=== PATIENT | female | born 1955 | race Caucasian/White ===

== ENCOUNTER → 2018-06-12 08:35 | Outpatient (REF) | payer BC, SELFPAY ==
[2018-06-12 12:32] LABS: Anion Gap 4.3 mmol/L (3-11); BUN 14 mg/dL (7-18); CO2 31.7 mmol/L (21.0-32.0); CREATININE 0.75 mg/dL (0.55-1.02); Calcium 8.6 mg/dL (8.5-10.1); Chloride 105 mmol/L (98-107); Cholesterol 219 mg/dL (50-200); Glucose 92 mg/dL (70-100); HDL Cholesterol 59 mg/dL (40-60); LDL CHOLESTEROL 140 mg/dL (<100); Potassium 4.1 mmol/L (3.5-5.1); Sodium 141 mmol/L (136-145); TSH 0.53 uIU/mL (0.358-3.74); Triglyceride 138 mg/dL (30-150)
[2018-06-12 13:57] LABS: Hemoglobin A1C 5.8 % (4.5-6.2)
== END ==
LOC: NCHCN 08:35
PROVIDERS: PCP Internal Medicine; Visit Provider Family Medicine
DX: Z00.00 Encounter for general adult medical examination without abnormal findings (principal); R73.9 Hyperglycemia, unspecified
CPT/HCPCS: 80048; 80061; 83721; 83036; 84443

== ENCOUNTER 2018-12-09 08:35 | Outpatient (REF) | payer BC, SELFPAY ==
[2018-12-09 14:10] LABS: ALT 45 U/L (12-78); AST 37 U/L (15-37); Albumin 3.6 g/dL (3.4-5.0); Alkaline Phosphatase 83 U/L (46-116); Anion Gap 6.5 mmol/L (3-11); BUN 12 mg/dL (7-18); Bilirubin, Total 0.4 mg/dL (0.2-1.0); CO2 31.5 mmol/L (21.0-32.0); CREATININE 0.86 mg/dL (0.55-1.02); Calcium 8.4 mg/dL (8.5-10.1); Chloride 99 mmol/L (98-107); Cholesterol 206 mg/dL (50-200); Glucose 108 mg/dL (70-100); HDL Cholesterol 59 mg/dL (40-60); LDL CHOLESTEROL 124 mg/dL (<100); Potassium 4.5 mmol/L (3.5-5.1); Sodium 137 mmol/L (136-145); Triglyceride 89 mg/dL (30-150)
[2018-12-09 14:13] LABS: Hemoglobin A1C 6.2 % (4.5-6.2)
== END 2018-12-09 08:55 ==
LOC: NCHCN 08:35
PROVIDERS: PCP Internal Medicine; Visit Provider Family Medicine
DX: Z00.00 Encounter for general adult medical examination without abnormal findings (principal); R73.9 Hyperglycemia, unspecified; R03.0 Elevated blood-pressure reading, without diagnosis of hypertension; E03.9 Hypothyroidism, unspecified; F32.9 Major depressive disorder, single episode, unspecified
CPT/HCPCS: 80053; 80061; 83721; 83036

== ENCOUNTER 2019-01-29 23:03 | Outpatient (REF) | payer BC, SELFPAY | END 2019-01-29 23:23 | LOC: NCHCN 23:03 | PROVIDERS: PCP Internal Medicine; Visit Provider Internal Medicine | DX: R30.0 Dysuria (principal) | CPT/HCPCS: 87086 ==

== ENCOUNTER 2019-07-22 02:19 | Outpatient (CLI) | payer BC, SELFPAY ==
--- NOTE | 2019-07-22 10:00 | NS.NUTBLAN_ITS ---
DESCRIPTION:? Julienne Vickers presents for nutrition consult for diabetes prevention with A1c down to 6.1? She participated in the PREVENT T2 program and found it helpful and successful with a 30 pound weight loss which she maintained for 1 year.? She wishes to lose 10 more pounds.?? Julienne has rye toast with neuchatel cheese for breakfast with coffee; has a salad with cheese, nuts, craisins, meat and 1 T vinaigrette.? Has protein and vegetables for supper with vegetarian 1-2 times per week and fish at least once a week.? She does not eat after 8.? She occasionally?has ice cream and chips are a downfall. Occasionally has a cookie and justifies it because they are whole grain.? One challenge is the number of conferences and meals out that she has with her .?? She attends [employer] twice a week for flexibility but recognizes she needs to increase cardiovascular. INTERVENTION: Discussed weight loss on caloric requirements and the need to decrease calories just to maintain current weight.? She is aware of this and willing to find a way to cut sweets a bit more. ? Reviewed diabetes food guide per her suggestion with focus on 1/2 plate vegetables at lunch and supper, always mixed protein/fat with carbohydrate, introduced glycemic index concepts and hunger/fullness.. Discussed strategies to decrease caloric intake at conference meals.?? PLAN:? Julienne will consider the many options discussed and implement 1 or 2 in the coming week.? She will increase her physical acitivity to daily including cardiovascular activities.
== END 2019-07-22 02:39 ==
PROVIDERS: PCP Internal Medicine; Visit Provider Dietitian, Registered
DX: R73.03 Prediabetes (principal); Z71.3 Dietary counseling and surveillance
CPT/HCPCS: 97802

== ENCOUNTER 2019-12-18 09:39 | Outpatient (REF) | payer BC, SELFPAY ==
[2019-12-18 12:35] LABS: Calculated LDL 149 mg/dL (<100); Cholesterol 239 mg/dL (<200); HDL Cholesterol 65 mg/dL (40-60); TSH 1.67 uIU/mL (0.36-3.74); Triglyceride 128 mg/dL (<150)
[2019-12-18 13:20] LABS: Hemoglobin A1C 5.9 % (3.8-5.6)
== END 2019-12-18 09:59 ==
LOC: NCHCN 09:39
PROVIDERS: PCP Internal Medicine; Visit Provider Family Medicine
DX: Z00.00 Encounter for general adult medical examination without abnormal findings (principal); R73.03 Prediabetes; E78.5 Hyperlipidemia, unspecified; E66.3 Overweight
CPT/HCPCS: 80061; 83036; 84443

== ENCOUNTER 2020-03-05 01:46 | Outpatient (CLI) | payer BC, SELFPAY ==
--- NOTE | 2020-03-05 | DI.MAMMO_ITS ---
EXAM: MG MAMMO SCREENING CLINICAL HISTORY: SCREENING, Z12.31 TECHNIQUE: Bilateral full field digital CC and MLO mammographic images were obtained with 3D tomosyn thesis and utilizing computer aided detection (CAD). COMPARISON: Available for comparison. FINDINGS: Masses/Architectural Distortion: None seen. Microcalcifications: No suspicious pleomorphic-type are seen. Skin Thickening/Nipple Retraction: None. IMPRESSION: 1. No significant interval change with no specific features of malignancy noted. 2. Unless there is more urgent need, screening mammography is recommended, as per [employer] guidelines. BI-RADS Category 1 - Negative Breast Density - Category B - Scattered areas of fibroglandular density A negative radiographic report should not delay biopsy if a dominant or clinically suspicious mass is present. Up to ten percent of cancers are not identified on mammography. A negative report may reinforce clinical impression. Adenosis and dense breasts may obscure an underlying neoplasm. False positive reports average 6 to 10%. Patient will receive a letter notifying them of these results.
== END 2020-03-05 02:06 ==
PROVIDERS: PCP Internal Medicine; Visit Provider Family Medicine
DX: Z12.31 Encounter for screening mammogram for malignant neoplasm of breast (principal)
CPT/HCPCS: 77063; 77067

== ENCOUNTER 2021-04-05 02:05 | Outpatient (CLI) | payer MEDICARE, OTHER, SELFPAY ==
--- NOTE | 2021-04-05 06:30 | DI.US_ITS ---
Exam(s) US PELVIS TRANSVAGINAL EXAM: US PELVIS TRANSVAGINAL CLINICAL HISTORY: evaluate ovaries and endometrial stripe,PELVIC PRESSURE,RELAXATION,N81.4, TECHNIQUE: Ultrasound performed using standard protocol. COMPARISON: No exams were available for comparison FINDINGS: Pelvic ultrasound was performed transabdominally and transvaginally. Uterus measures 6.9 x 2.5 x 3.9 cm. Endometrial stripe appears homogeneous and is about 1 millimeter in thickness. No focal myometrial abnormality seen. No free fluid in the cul-de-sac. Limited scanning of the kidneys is unremarkable. Right ovary contains a 46 x 44 x 38 millimeter in diameter septated cystic mass which is avascular. Inferior/posterior portions of the cystic mass are not ideally visualized. Pelvic MR suggested for c orrelation to exclude solid components of this mass. Left ovary measures 23 x 13 x 13 millimeters. No left ovarian mass seen. IMPRESSION: Right ovarian cystic mass, suboptimally visualized but apparently and avascular septated cyst. MR co rrelation recommended to exclude solid components of this lesion. DATA REPOSITORY:
== END 2021-04-05 02:25 ==
PROVIDERS: PCP Family Medicine; Visit Provider Obstetrics & Gynecology
DX: N83.201 Unspecified ovarian cyst, right side (principal); N81.4 Uterovaginal prolapse, unspecified
CPT/HCPCS: 76830; 76856

== ENCOUNTER → 2021-04-11 13:08 | Outpatient (BNVA) | payer MEDICARE, OTHER, SELFPAY | PROVIDERS: PCP Family Medicine; Referring Provider Obstetrics & Gynecology; Visit Provider Nurse Practitioner Gerontology | DX: N39.3 Stress incontinence (female) (male) (principal) | CPT/HCPCS: 99204 ==

== ENCOUNTER 2021-04-25 02:17 | Outpatient (CLI) | payer MEDICARE, OTHER, SELFPAY ==
[2021-04-25 14:06] LABS: CREATININE 0.7 mg/dL (0.55-1.02)
[2021-04-25] MEDS: Normal Saline Flush 10 ML SYR IVP (14:18)
[2021-04-25] MEDS: Gadoterate meglumine 20 ML VIAL 17 ML IVP (14:19)
--- NOTE | 2021-04-25 14:45 | DI.MRI_ITS ---
Exam(s) MR PELVIS WO/W EXAM: MR PELVIS WO/W CLINICAL HISTORY: pelvic mass,RT OVARIAN MASS,N83.8 COMPARISON: US US PELVIS TRANSVAGINAL from 04/05/2021 FINDINGS: Multisequence MRI scan of the pelvis was performed with both pre and post IV contrast sequences. IV contrast = 17 mL Dotarem FINDINGS: UTERUS/ADNEXA: Main findings in the right adnexa where there is a well-defined cystic mass measuring 5 cm AP by 4.5 cm wide by 6.7 cm craniocaudal. This right ovarian mass exhibits uniformly cystic internal signal wit h the exception of a few very thin septae and no evidence of internal enhancement nor significant mur al nodules. No surrounding free fluid. Opposite-left adnexa appears unremarkable. Uterus size is age-appropriate. No significant uterine fibroids evident. There is no fluid in the end ometrial canal. URINARY BLADDER: Small cystocele. Otherwise unremarkable. OTHER: There are sigmoid diverticuli, without evidence of acute diverticulitis. No intrapelvic nor inguinal adenopathy. OSSEOUS: No significant osseous lesions in the field of view of this study. Sacroiliac joints unremar kable. No evidence of avascular necrosis in the visualized hips. IMPRESSION: Almost purely cystic 5 x 4.5 x 6.7 cm mass in the right adnexa the exception of 2 very thin internal septae. No mural nodules nor abnormal internal enhancement evident. No surrounding fluid nor obvious intrapelvic adenopathy. Although this has somewhat benign-appearing characteristics given this findin g in this age group recommend close follow-up including repeat imaging after appropriate clinical int erval. No significant findings in the opposite-left adnexa. No significant uterine fibroids. Sigmoid diverticulosis. No obvious acute diverticulitis. DATA REPOSITORY:
== END 2021-04-25 02:37 ==
PROVIDERS: PCP Family Medicine; Visit Provider Obstetrics & Gynecology
DX: N83.8 Other noninflammatory disorders of ovary, fallopian tube and broad ligament (principal); K57.30 Diverticulosis of large intestine without perforation or abscess without bleeding
CPT/HCPCS: 72197; 82565

== ENCOUNTER 2021-05-04 08:13 | Outpatient (CLI) | payer MEDICARE, OTHER, SELFPAY ==
[2021-05-04 17:34] LABS: CEA <2.0 ng/mL (See Note)
[2021-05-05 10:33] LABS: CA 125 7 U/mL (<30)
[2021-05-06 10:10] LABS: CA 19-9 9 U/mL (<35)
== END 2021-05-04 08:14 | disposition home or self-care (01) ==
LOC: LBO 08:14
PROVIDERS: PCP Family Medicine; Visit Provider Obstetrics & Gynecology
DX: N83.8 Other noninflammatory disorders of ovary, fallopian tube and broad ligament (principal); R19.09 Other intra-abdominal and pelvic swelling, mass and lump
CPT/HCPCS: 36415; 86304; 82378; 86301

== ENCOUNTER 2021-06-06 02:11 | Outpatient (CLI) | payer MEDICARE, OTHER, SELFPAY ==
[2021-06-06 11:01] LABS: Source Nasal/Nares
[2021-06-06 13:57] LABS: COVID-19 PCR Negative (Negative)
== END 2021-06-06 02:12 | disposition home or self-care (01) ==
LOC: LBO 02:12
PROVIDERS: PCP Family Medicine; Visit Provider Obstetrics & Gynecology
DX: Z20.822 Contact with and (suspected) exposure to COVID-19 (principal); Z01.818 Encounter for other preprocedural examination
CPT/HCPCS: 36415; 86850; 86900; 86901; 87635; 85025

== ENCOUNTER 2021-06-06 03:05 | Outpatient (CLI) | payer MEDICARE, OTHER, SELFPAY ==
[2021-06-06 08:58] LABS: Abs Immature Grans 0.01 10^3/uL (0.0-0.06); Absolute Basophil Count 0.04 10^3/uL (0.0-0.2); Absolute Eosinophil Count 0.36 10^3/uL (0.0-0.7); Absolute Lymphocyte Count 1.19 10^3/uL (1.2-3.4); Absolute Monocyte Count 0.32 10^3/uL (0.1-0.8); Basophils % 0.9; Eosinophils % 8.1; HGB 14.1 g/dL (11.2-15.7); Immature Grans % 0.2; Lymphocytes % 26.9; MCH 29.5 pg (27.0-33.0); MCV 92.1 fL (80-95); MPV 9.7 fL (8.0-11.0); Monocytes % 7.2; Neutrophils % 56.7; Nucleated RBC 0 %; Platelet Count 231 10^3/uL (130-400); RBC 4.78 10^6/uL (3.93-5.22); RDW-SD 41.1 fL; WBC 4.42 10^3/uL (4.4-10.8)
== END 2021-06-06 03:06 | disposition home or self-care (01) ==
LOC: LBO 03:05
PROVIDERS: PCP Family Medicine; Visit Provider Obstetrics & Gynecology
DX: R10.2 Pelvic and perineal pain (principal); N83.8 Other noninflammatory disorders of ovary, fallopian tube and broad ligament; N81.4 Uterovaginal prolapse, unspecified; Z01.818 Encounter for other preprocedural examination; Z01.812 Encounter for preprocedural laboratory examination
CPT/HCPCS: 36415; 86850; 86900; 86901; 85025

== ENCOUNTER 2021-06-08 07:51 | Inpatient (IN) | payer MEDICARE, OTHER, SELFPAY ==
[2021-06-08] VITALS (12 sets, daily range): BP systolic 105–141; BP diastolic 46–83; PULSE 50–65; RESP 12–18; TEMP 36–36.6; O2SAT 94–98; BMI 30.1
[2021-06-08] MEDS: Lactated Ringers 1,000 ML 125 ML IV ×2 (08:25→14:49)
--- NOTE | 2021-06-08 08:25 | ANES.PREOP_ITS ---
General Info Date of Service Date Performed: 06/08/21 Height: 5 ft 6 in Weight: 84.6 kg Body Mass Index (BMI): 30.1 Surgical Procedure: Operation Date: 06/08/21 09:10 Proposed Procedures Side Surgeon p Hysterectomy Vaginal Laparoscopic Assist Tanika Henriquez DO Meds Allergies and Home Medications Allergies Allergy/AdvReac Type Severity Reaction Status Date / Time omeprazole AdvReac Intermediate nausea, Unverified 06/08/21 08:04 bloating, headaches Home Medication Medication Instructions Recorded levothyroxine 75 mcg PO HS 10/07/15 pravastatin 20 mg PO HS 10/07/15 albuterol sulfate 90 mcg/actuation 2 puff INHALATION Q6H PRN 03/09/21 aerosol inhaler Current Visit Medications: Current Medications Generic Name Dose Route Start Last Admin Trade Name Freq PRN Reason Stop Dose Admin Ringer's Solution 1,000 mls @ 125 mls/hr 06/08/21 06:00 IV 07/07/21 23:59 INFUSION INGA Cefazolin Sodium 2,000 mg/ 100 mls @ 200 mls/hr 06/08/21 06:00 Sodium Chloride IVPB 06/08/21 23:59 PREOP INGA IV Miscellaneous Supplies 1 each 06/08/21 06:00 Iv Access IV 07/07/21 23:59 DIRECTED INGA Sodium Chloride 0 ml 06/08/21 06:00 Normal Saline Flush 10 Ml Syr IV 07/07/21 23:59 PRN PRN Sodium Chloride 0 ml 06/08/21 06:00 Normal Saline 10 Ml Vial IJ 07/07/21 23:59 DIRECTED PRN Sterile Water 0 ml 06/08/21 06:00 Water,Injection,Sterile 10 Ml Vial IJ 07/07/21 23:59 DIRECTED PRN PFSH Active Problems Active Problems: Problem Status Onset Code Pelvic mass in female R19.00 Mass of right ovary N83.8 Cystocele with prolapse N81.4 Pelvic pressure in female R10.2 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 N81.4 Medical History Medical History Asthma Cystocele with prolapse Hypercholesteremia Hypothyroid Mass of right ovary Pelvic mass in female Pelvic pressure in female 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 Pre-diabetes Surgical History Surgical History Hx laparoscopic cholecystectomy Hx of section Tobacco Smoking/Tobacco Use Status: Never Alcohol Alcohol Intake: current Alcohol intake frequency: a few times a week Substance Use Substance use: Never Prental History History 2 Para Hx # Term Pregnancies 2 Multiple births Hx # Pregnancies Ectopic pregnancies AB induced Hx Number of Living Children 2 AB spontaneous Vital Signs and Lab Results Vital Signs Most Recent Vital Signs in EMR: Most Recent Vital Signs Temp Pulse Resp BP Pulse Ox 36.5 C 65 18 141/83 H 95 06/08/21 08:00 06/08/21 08:00 06/08/21 08:00 06/08/21 08:00 06/08/21 08:00 Lab Results Blood Type / Crossmatch: Patient ABO/Rh A Positive 06/06/21 08:52 06/06/21 Antibody Screen NEGATIVE 06/06/21 08:52 06/06/21 Complete Blood Count: White Blood Count 4.42 10^3/uL (4.4-10.8) 06/06/21 08:52 06/06/21 Red Blood Count 4.78 10^6/uL (3.93-5.22) 06/06/21 08:52 06/06/21 Hemoglobin 14.1 g/dL (11.2-15.7) 06/06/21 08:52 06/06/21 Hematocrit 44.0 % (36.0-46.0) 06/06/21 08:52 06/06/21 Platelet Count 231 10^3/uL (130-400) 06/06/21 08:52 06/06/21 Complete Metabolic Panel: No Data to Display Liver Function Panel: No Data to Display Coagulation Panel: No Data to Display Cardiac Panel: No Data to Display Arterial Blood Gas: No Data to Display Venous Blood Gas: No Data to Display Pancreas Panel: No Data to Display Thyroid Panel: No Data to Display Infectious Disease: Coronavirus (COVID-19)(PCR) Negative (Negative) 06/06/21 09:15 06/06/21 Coronavirus 2019 Source Nasal/Nares 06/06/21 09:15 06/06/21 Blood Cultures: No Data to Display Toxicology Panel: 2 No Data to Display Imaging and Studies Imaging and Studies Stress Test Summary: 1. Myocardial perfusion imaging: No myocardial perfusion defects noted. 2. The calculated left ventricular ejection fraction after stress: 66%. No left ventricular regional motion abnormality. History: REASON FOR VISIT: PT REPORTS EPISODE OF CHEST PAIN JUST BEFORE JOSLYN. HER DOCTOR QUESTIONS IF THIS IS RELATED TO HER ESOPHAGEAL SPASMS OR CARDIAC RELATED. PT HAS A POSITIVE FAMILY HISTORY FOR CARDIAC DISEASE. PT REPORTS THIS EPISODE OF SUBSTERNAL CHEST PAIN WOKE HER UP FROM SLEEP, AND LASTED ABOUT 10 MINUTES. SHE DESCRIBES THE CHEST PAIN A TIGHTNESS OR HEAVINESS LIKE A BAND TIGHTENING AROUND MY CHEST ASSOCIATED WITH SHARP CHEST PAINS AND NAUSEA. SHE STATES THE CHEST HEAVINESS LASTED LONGER THAN THE SHARP CHEST PAINS. Risk factors: MOTHER AT AGE 63 OF HEART DISEASE. BROTHER AT AGE 32 OF HEART DISEASE. Family history of coronary artery disease. Obesity. Dyslipidemia. Cholesterol: 216mg/dl. HDL: 57mg/dl. LDL: 149mg/dl. Triglycerides: 128mg/dl. ALLERGIES: NO KNOWN DRUG ALLERGIES. MEDICATIONS: CITALOPRAM 20 MG DAILY. LEVOTHYROXINE SODIUM 75 MCG DAILY. OMEPRAZOLE 20 MG DAILY. PRAVASTATIN SODIUM 20 MG DAILY. ALBUTEROL MDI, NEEDED. Anesthesia Assessment and Plan Anesthesia History Personal History: No History of Anesthesia Complications Family History: No Family History of Anesthesia Complications Exercise Tolerance Exercise Tolerance: Metabolic Equivalents>4 Pertinent Negatives Pertinent Negatives: No Symptoms of GERD, No Major Cardiovascular Symptoms or Complaints, No Major Pulmonary Symptoms or Complaints and No History of CVA/TIA Cardiac & Pulmonary Exam Cardiac Exam: Normal S1/S2 Heart Sounds Pulmonary Exam: Clear Bilateral Breath Sounds Airway Exam Known Difficult Airway: No Mallampati Class: 2 Mouth Opening: Normal (> 3cm) Thyromental Distance: Greater than 3 cm Neck Range of Motion: Full ROM Neck Circumference: Normal Teeth Condition: Normal Dentition ASA Classification ASA Score: ASA 2 Emergency Case?: No NPO Status NPO Status: NPO Clears >2 hours, Solids >8 hours Anesthesia Plan Resuscitation Status: Full Code Anesthesia Technique: General Anesthesia Airway Planned: Endotracheal Tube Monitors Used: Standard Monitors
[2021-06-08] MEDS: ceFAZolin 2,000 MG in Normal Saline 100 ML 200 MG IVPB (10:32)
--- NOTE | 2021-06-08 11:24 | UTER_PTH ---
PATIENT: Donna Abbasi LOC: OBS U#:[id number] AGE/SX: 66/F ROOM: OBS.305 RE06/08/[address]: Tanika Henriquez DO : 1955 BED: A DIS: 06/09/2021 SPEC #: [id number] RECD: 06/08/21 16:05 STATUS: NANCY REQ #: [id number] JONATHAN: 06/08/21 11:[address]: Tanika Henriquez DEPT: Surgical Specimen RECD BY: Kari Galindo ENTERED: 06/08/21 16:14 SP TYPE: UTER OTHR DR: Albina Uribe Tissues: 1 - OVARY NOT TUMOR W OR W/O TUBES 2 - OVARY NOT TUMOR W OR W/O TUBES 3 - UTERUS W OR W/O OVARIES(NOT TUMOR/PROLAPSE) Procedures: GROSS AND MICRO LEVEL 4 Comments: [id number]
[2021-06-08] MEDS: Bupivacaine 0.5% Pres-Free 30 ML VIAL (12:33)
--- NOTE | 2021-06-08 13:30 | ROE_ITS ---
Date of service: 06/08/21 Time of Service: 13:30 Operative Note Operative Note DATE OF PROCEDURE: 06/08/21 PRE-OP DIAGNOSIS: Pelvic organ prolapse, right ovarian cyst POST-OP DIAGNOSIS: same PROCEDURE: Laparoscopically assisted vaginal hysterectomy with bilateral salpingo-oophorectomy, Stewart's culdoplasty, uterosacral plication , anterior colporrhaphy, cystoscopy SURGEON: Tanika Henriquez ASSISTING SURGEON: Toma Cortes ANESTHESIA TYPE: General LMA/ETT and Spinal Refer to Anesthesia Record ESTIMATED BLOOD LOSS: 50 PATHOLOGY: other (1. Right adnexa 2. Left adnexa 3. Uterus and cervix) COMPLICATIONS: None Patient was transported to: PACU Patient's condition: stable Indications: Symptomatic pelvic organ prolapse and right ovarian cyst Findings: 5 cm simple appearing right ovarian cyst, normal-appearing left ovary with adhesions to the left pelvic sidewall, normal-appearing uterus, grade 3 cystocele, grade 2 uterine prolapse Procedure Description: Patient is taken the operating suite with an IV running. She was placed in seated position for administration of spinal for postoperative pain control. She is then placed in dorsal supine position and endotracheal intubation performed for the administration of general anesthesia with ease. At this point she was placed in the modified dorsolithotomy position in [facility] stirrups and prepped and draped in the usual sterile fashion. Veloz catheter was inserted for continuous bladder drainage. Exam under anesthesia revealed a uterus that was small, midline, mobile and right adnexal fullness. She has significant cystocele, grade 3 and grade 2 uterine prolapse. At this point speculum was placed in the posterior vaginal vault and a Hulka uterine manipulator placed through the cervix for uterine manipulation. Speculum was removed and attention was returned to the abdomen. At this point after infiltrating of half percent Marcaine at the umbilicus a 1 cm incision was made at the umbilicus. The anterior abdominal wall was elevated and varies needle inserted. CO2 gas used to create a pneumoperitoneum with a maximum pressure of 15 mmHg. At this point a bladeless 1012 Optiview was placed under direct visualization into the abdomen. The abdomen was then visualized completely. There is no evidence of trauma. Right and left lower quadrant trocar sites were placed with a 5 mm Optiview under direct visualization after infiltration of half percent Marcaine. At this point patient was placed in Trendelenburg and uterus tubes and ovaries inspected. There was noted to be simple appearing right ovarian cyst which measured approximately 5 cm. Left ovary was small and left fallopian tube with fimbriated end somewhat adherent to the left pelvic sidewall. Uterus was mobile and small. At this point attention was turned to the right adnexa which was elevated and right infundibulopelvic ligament was cautery transected. Right utero-ovarian ligament was also cautery transected and ligated and Endopouch placed into the abdomen. The ovary and cyst were elevated to the anterior abdominal wall and Endopouch was produced through the anterior normal wall. The cyst was then opened extracorporeally and cyst fluid was removed. This allowed delivery of the right adnexa through the anterior abdominal wall without spillage of fluid into the abdomen. At this point attention was turned to the left adnexa which was elevated and meticulously sharply dissected away from the left pelvic sidewall. Left infundibulopelvic ligament was cautery transected and ligated as was the left round ligament. The left utero-ovarian ligament was cautery transected and the left adnexa removed from the abdomen through trocar site. At this point attention again was turned to the remainder of the left round ligament which was cautery transected allowing access to the left broad ligament. Left broad ligament was opened and the vesicouterine peritoneum identified and bladder flap created. The left uterine artery and vein were cauterized. A similar procedure was carried out on the right round ligament allowing access to the right broad ligament and the remainder of the bladder flap was created anteriorly. At this point all pedicles were inspected and at tention was turned to the vaginal vault. With attention at the vaginal vault a speculum was placed and Hulka had been removed. Homer clamps were used to grasp the anterior and posterior lips of the cervix and in a circumferential fashion with the Bovie cautery the cervical vaginal incision was made. The posterior cul-de-sac was entered sharply. The right and left uterosacral cardinal complexes were clamped transected and ligated. And with meticulous sharp dissection the anterior cul-de-sac was entered. The right and left uterosacral cardinal complex and uterine pedicles were clamped transected and ligated allowing delivery of the cervix and uterus through the vaginal vault. At this point there was noted to be a small enterocele which was reduced and a Stewart's culdoplasty stitch placed. Uterosacral cardinal complex which had been previously tagged were reapproximated in the midline for uterosacral plication. At this point the vaginal cuff was closed using 0 Vicryl suture in a running locked fashion in a vertical fashion. At this point anterior colporrhaphy was performed with infiltration of 1% lidocaine with epinephrine into the anterior vaginal wall for both hemostasis a nd [place] dissection. A vertical incision was carried out from the vaginal cuff to just below the urethrovesical angle. Vaginal mucosa was sharply dissected and meticulously removed from the underlying structure. Endopelvic fascia identified. A Mara plication stitch was performed at the urethrovesical angle. The remainder of the anterior crura feel was completed with a suture of 2-0 Vicryl suture to reapproximate the endopelvic fascia anteriorly. The vaginal mucosa was then trimmed and the vaginal mucosa was reapproximated with 3-0 Vicryl suture in a running locked fashion. This completed the anterior colporrhaphy. Attention was then returned to the abdomen and abdomen was reinsufflated with CO2 gas. Both the vaginal cuff and all pedicles were inspected and found to be hemostatic. Patient did receive indigo carmine intravascularly. The fascial incision at the umbilicus was then closed using 0 Vicryl suture and skin edges were reapproximated. Sterile dressing was placed. At this point bladder cystoscopy performed. Bladder was instilled with normal saline the entire bladder dome and trigone were inspected and found to be without trauma or suture present. Both ureteric orifice ease were identified and jets of blue urine were identified. This completed the procedure and cystoscope was removed. Veloz catheter was reinserted and the patient was returned to the dorsal supine position. She woke from anesthesia with ease. Taken recovery room in stable condition. Findings: 5 cm right ovarian cyst. Left small ovary with adhesions of to the left pelvic sidewall. Normal-appearing fallopian tubes. Small uterus. Grade 3 cystocele. Grade 2 uterine prolapse. EBL: 50 mL Complications: None apparent Pathology: Right adnexa, left adnexa, uterus and cervix for examination.
--- NOTE | 2021-06-08 15:51 | W.ANESPOSTOP ---
Postoperative Evaluation Date, Time and Location Date Performed: 06/08/21 Time Performed: 15:51 Patient Location: PACU Vital Signs Most Recent Imported Vital Signs: Most Recent Vital Signs Temp Pulse Resp BP Pulse Ox 36.2 C L 55 L 14 117/76 97 06/08/21 14:39 06/08/21 14:39 06/08/21 14:39 06/08/21 14:39 06/08/21 14:39 Pain Score Most Recent Pain Score: Most Recent Pain Score Pain Level [Abdomen] 4 06/08/21 14:40 Pain Level 4 06/08/21 14:39 Assessment Mental Status: Awake (Alert & Oriented to Patient Baseline) Airway and Respiratory Function: Patent airway with normal (patient baseline) respiratory exam Cardiovascular Function: Hemodynamically Stable Hydration Status: Adequately Hydrated Nausea & Vomiting: No Nausea or Vomiting Pain: Pt. Denies Any Pain Peripheral Nerve Block: Patient did not receive a nerve block
[2021-06-08] MEDS: Ketorolac 15 MG/ML VIAL IVP (20:27)
[2021-06-08] MEDS: Docusate Sodium 100 MG CAP PO (20:27)
[2021-06-09 00:28] VITALS: BP 113/57; PULSE 55; RESP 18; TEMP 36.4; O2SAT 98
[2021-06-09] MEDS: Ketorolac 15 MG/ML VIAL IVP ×2 (01:58→07:17)
[2021-06-09 07:08] LABS: Abs Immature Grans 0.02 10^3/uL (0.0-0.06); Absolute Basophil Count 0.02 10^3/uL (0.0-0.2); Absolute Eosinophil Count 0.05 10^3/uL (0.0-0.7); Absolute Lymphocyte Count 1.11 10^3/uL (1.2-3.4); Absolute Monocyte Count 0.56 10^3/uL (0.1-0.8); Absolute Neutrophil Count 6.45 10^3/uL (1.2-6.7); Basophils % 0.2; Eosinophils % 0.6; HCT 39.6 % (36.0-46.0); HGB 12.8 g/dL (11.2-15.7); Immature Grans % 0.2; Lymphocytes % 13.5; MCH 29.8 pg (27.0-33.0); MCHC 32.3 % (32.0-36.0); MCV 92.1 fL (80-95); MPV 9.9 fL (8.0-11.0); Monocytes % 6.8; Neutrophils % 78.7; Nucleated RBC 0 %; Platelet Count 202 10^3/uL (130-400); RDW 12.3 % (11.7-14.6); RDW-SD 41.1 fL; WBC 8.21 10^3/uL (4.4-10.8)
[2021-06-09] MEDS: Docusate Sodium 100 MG CAP PO (07:16)
[2021-06-09 07:32] VITALS: BP 116/62; PULSE 47; RESP 14; TEMP 36.4; O2SAT 95
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
--- NOTE | 2021-06-09 09:23 | W.PM.DS.N ---
DS: Diagnosis Discharge Diagnosis (1) Status post laparoscopic assisted vaginal hysterectomy (LAVH): Status: Acute Discharge Plan Disposition Patient Disposition: HOME Condition: Good Discharge Details Reason For Visit: LAVH, BSO, pelvic reconstruction Admit Date/Time: 06/08/21 07:51 Admit Provider: Tanika Henriquez Attending Provider: Tanika Henriquez Primary Care Provider: Albina Uribe Hospital Course Hospital Course: Patient underwent a laparoscopically assisted vaginal hysterectomy with bilateral salpingo-oophorectomy anterior colporrhaphy, Stewart's culdoplasty, uterosacral ligament plication, cystoscopy for pelvic organ prolapse and right ovarian cyst. She had an uncomplicated surgical procedure with an uncomplicated postoperative course. She was discharged home, postoperative day #1 ambulating, tolerating a regular diet, with oral pain medication. Her follow-up will be in the office in 2 weeks and 6 weeks. She had instructions given which include pelvic rest and no heavy lifting for the next 6 weeks Home Meds and New Rx's Prescriptions: New ibuprofen 800 mg tablet 800 mg PO Q8H Qty: 30 RF: 0 oxycodone-acetaminophen [Percocet] 5-325 mg tablet 1 tab PO Q8H PRNQty: 10 RF: 0 docusate sodium [Colace] 100 mg capsule 100 mg PO BID Qty: 30 RF: 0 Continued albuterol sulfate 90 mcg/actuation HFA aerosol inhaler 2 puff inhalation Q6H PRNRF: 0 levothyroxine 75 MCG tablet 75 mcg PO HS RF: 0 pravastatin 20 MG tablet 20 mg PO HS RF: 0 Discharge Instructions Stand Alone Forms: DSU Post Gynecology Surgery Activity:: Pelvic rest and no heavy Equipment/Supplies:: No Equipment Needed Diet:: As Tolerated Discharge Orders Discharge Orders: Discharge Order (Routine); Ordered 06/09/21 Ordered By: Tanika Henriquez DS: Summary Time Spent with Patient providing and/or coordinating discharge services: Less than 30 minutes Status at Discharge Functional status at discharge: independent ambulation Overall status at discharge: patient is back to baseline Mental Status: mental status grossly normal Speech and Movement: speech and movement normal Mood: congruent mood Affect: normal affect Exam Narrative Exam Narrative: Please see physical exam from progress note dated 06/09/2021 Psych Mental Status: mental status grossly normal Speech and Movement: speech and movement normal Mood: congruent mood Affect: normal affect DS: Data Vitals/I&O Vitals and I&O: Vital Signs Temperature 97.5 F L 06/09/21 07:32 Temperature Source Oral 06/09/21 07:32 Pulse 47 L 06/09/21 07:32 Pulse Rhythm Regular 06/09/21 07:32 Respiratory Rate 14 06/09/21 07:32 Respiratory Effort 06/09/21 07:32 Respiratory Depth Normal 06/09/21 07:32 Respiratory Pattern Normal 06/09/21 07:32 Blood Pressure 116/62 06/09/21 07:32 Pulse Oximetry 95 06/09/21 07:32 Respiratory End-tidal CO2 39 06/08/21 14:39 Oxygen Delivery Method Room Air 06/09/21 07:32 Oxygen Flow Rate 0 06/09/21 07:32 Pain Level 1 06/09/21 00:28 Intake & Output 06/08/21 06/08/21 06/09/21 11:59 23:59 11:59 Intake Total 100 / 2452 2352 / 2452 1490 / 1490 Output Total 150 / 900 750 / 900 450 / 450 Balance -50 / 1552 1602 / 1552 1040 / 1040 Weight 186 lb 8.177 oz Intake: IV 100 / 1702 1602 / 1702 1240 / 1240 Oral 750 / 750 250 / 250 Output: Urine 150 / 850 700 / 850 450 / 450 Estimated Blood Loss 50 / 50 Other: Urine Color Yellow Yellow Dark Judi Urine Appearance Clear Clear Clear Urine Odor None None Comment Catheter removed per standing orders. Emesis Description None Voiding Methods Toilet Data Completed and Pending Labs on day of discharge: Labs from last 24 hours 06/09/21 06:50 WBC 8.21 RBC 4.30 Hgb 12.8 Hct 39.6 MCV 92.1 MCH 29.8 MCHC 32.3 RDW 12.3 Plt Count 202 MPV 9.9 Immature Gran % 0.2 Neutrophils % 78.7 Lymphocytes % 13.5 Monocytes % 6.8 Eosinophils % 0.6 Basophils % 0.2 Nucleated RBC % 0 Absolute Neutrophils 6.45 Absolute Lymphocytes 1.11 L Absolute Monocytes 0.56 Absolute Eosinophils 0.05 Absolute Basophils 0.02 PFSH Medical History Asthma Cystocele with prolapse Hypercholesteremia Hypothyroid Mass of right ovary Pelvic mass in female Pelvic pressure in female 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 Pre-diabetes Surgical History Hx laparoscopic cholecystectomy Hx of section Status post laparoscopic assisted vaginal hysterectomy (LAVH) Patient is status post laparoscopically assisted vaginal hysterectomy with bilateral salpingo-oophorectomy Stewart's culdoplasty, anterior colporrhaphy, uterosacral ligament plication and cystoscopy Family History Other Personal history of malignant neoplasm Social History Smoking/Tobacco Use Status: Never Smoking risk assessment performed?: Yes Alcohol Intake: current Alcohol Intake frequency: a few times a week Drug use: Never Do you feel safe at home: Yes History History 2 Para Hx # Term Pregnancies 2 Multiple births Hx # Pregnancies Ectopic pregnancies AB induced Hx Number of Living Children 2 AB spontaneous
== END 2021-06-09 10:00 | disposition home or self-care (01) | DRG 743 ==
LOC: PDS 15:29 → OBS 15:31
PROVIDERS: Admitting Provider Obstetrics & Gynecology; PCP Family Medicine; Visit Provider Obstetrics & Gynecology
PROC: 0UT9FZZ Resection of Uterus, Via Natural or Artificial Opening With Percutaneous Endoscopic Assistance (ICD-10-PCS; CPT 58552; principal; 2021-06-08 09:00)
DX: N81.4 Uterovaginal prolapse, unspecified (principal); D27.0 Benign neoplasm of right ovary; N83.292 Other ovarian cyst, left side; N83.8 Other noninflammatory disorders of ovary, fallopian tube and broad ligament; J45.909 Unspecified asthma, uncomplicated; E03.9 Hypothyroidism, unspecified; R73.03 Prediabetes
CPT/HCPCS: 58552; 57268; 57240; 36415; 88305; 85025; 88307; J0690; J1100; J1885; J2001; J2250; J2405

== ENCOUNTER 2021-09-01 09:42 | Outpatient (REF) | payer MEDICARE, OTHER, SELFPAY ==
[2021-09-01 17:06] LABS: Hemoglobin A1C 6.1 % (<5.7)
[2021-09-01 17:26] LABS: ALT 37 U/L (14-59); AST 20 U/L (15-37); Albumin 3.9 g/dL (3.4-5.0); Alkaline Phosphatase 66 U/L (46-116); Anion Gap 7.9 mmol/L (3-11); BUN 18 mg/dL (7-18); Bilirubin, Total 0.4 mg/dL (0.2-1.0); CO2 30.1 mmol/L (21.0-32.0); CREATININE 0.7 mg/dL (0.55-1.02); Calcium 8.8 mg/dL (8.5-10.1); Calculated LDL 167 mg/dL (<100); Chloride 107 mmol/L (98-107); Cholesterol 258 mg/dL (<200); Glucose 105 mg/dL (74-106); HDL Cholesterol 63 mg/dL (40-60); Potassium 4.5 mmol/L (3.5-5.1); Sodium 145 mmol/L (136-145); Total Protein 6.9 g/dL (6.4-8.2); Triglyceride 140 mg/dL (<150)
== END 2021-09-01 09:43 | disposition home or self-care (01) ==
LOC: NCHCN 09:42
PROVIDERS: PCP Family Medicine; Visit Provider Family Medicine
DX: E11.9 Type 2 diabetes mellitus without complications (principal); E78.5 Hyperlipidemia, unspecified; E66.3 Overweight
CPT/HCPCS: 80053; 80061; 83036

== ENCOUNTER 2022-03-01 08:12 | Outpatient (REF) | payer MEDICARE, OTHER, SELFPAY ==
[2022-03-01 15:38] LABS: ALT 31 U/L (14-59); AST 19 U/L (15-37); Alkaline Phosphatase 68 U/L (46-116); Anion Gap 7.3 mmol/L (3-11); BUN 21 mg/dL (7-18); Bilirubin, Total 0.4 mg/dL (0.2-1.0); CO2 31.7 mmol/L (21.0-32.0); CREATININE 0.8 mg/dL (0.55-1.02); Calcium 8.8 mg/dL (8.5-10.1); Calculated LDL 169 mg/dL (<100); Chloride 104 mmol/L (98-107); Cholesterol 263 mg/dL (<200); Glucose 115 mg/dL (74-106); HDL Cholesterol 66 mg/dL (40-60); Potassium 4.8 mmol/L (3.5-5.1); Sodium 143 mmol/L (136-145); Total Protein 7.1 g/dL (6.4-8.2); Triglyceride 141 mg/dL (<150)
== END 2022-03-01 08:13 | disposition home or self-care (01) ==
LOC: NCHCN 08:12
PROVIDERS: PCP Family Medicine; Visit Provider Family Medicine
DX: E11.9 Type 2 diabetes mellitus without complications (principal); E78.5 Hyperlipidemia, unspecified; E03.9 Hypothyroidism, unspecified; E66.3 Overweight
CPT/HCPCS: 80053; 80061; 84443

== ENCOUNTER → 2022-07-12 02:21 | Outpatient (CLI) | payer MEDICARE, OTHER, SELFPAY ==
--- NOTE | 2022-07-12 08:30 | DI.MAMMO_ITS ---
Exam(s) MAMMO SCREENING EXAM: MAMMO SCREENING CLINICAL HISTORY: screening,z12.39 TECHNIQUE: Mammograms were interpreted according to the usual protocol including computer analysis w [employer] CAD system, tomosynthesis and C-view imaging. COMPARISON: FINDINGS: The breasts are of moderate density with fairly symmetrical distribution of fibroglandular tissue. No dominant mass or clumped microcalcification is identified in either breast. The current examination is compared with previous examinations including February 2020 and there is question of increased prominen ce of an area of nodularity projected laterally in the right breast on CC view only. Additional mammo graphic views of this area are requested to include CC spot compression view of the right breast. No other significant change seen in comparison with prior examinations. IMPRESSION: Additional mammographic views of the right breast are requested as described above. Breast ultrasound may be indicated as well depending on the results of the additional mammographic views. BI-RADS Category 0 - Assessment Incomplete: Need additional imaging evaluation Breast Density - Category B - Scattered areas of fibroglandular density
== END ==
PROVIDERS: PCP Family Medicine; Visit Provider Obstetrics & Gynecology
DX: Z12.31 Encounter for screening mammogram for malignant neoplasm of breast (principal); R92.8 Other abnormal and inconclusive findings on diagnostic imaging of breast
CPT/HCPCS: 77063; 77067

== ENCOUNTER → 2022-07-19 01:44 | Outpatient (CLI) | payer MEDICARE, OTHER, SELFPAY ==
--- NOTE | 2022-07-19 13:00 | DI.MAMMO_ITS ---
Exam(s) MAMMO SCREEN CALL BACK UNI EXAM: MAMMO SCREEN CALL BACK UNI CLINICAL HISTORY: F/U ABNL MAMMO, INCREASED PROMINENCE OF NODULARITY LATERALLY, RT BREAST TECHNIQUE: Spot compression views with tomographic imaging were performed. COMPARISON: 12 July 2022 and exams back to 2013. FINDINGS: No suspicious masses or suspicious microcalcifications are seen. No persistent abnormality is seen on the additional views performed. The findings are consistent wit h overlying fibroglandular tissue. There has been no significant change from prior exams. IMPRESSION: BI-RADS Category 1, Negative Yearly screening mammography is recommended. Breast Density - Category B, scattered fibroglandular densities.
== END ==
PROVIDERS: PCP Family Medicine; Visit Provider Obstetrics & Gynecology
DX: Z12.31 Encounter for screening mammogram for malignant neoplasm of breast (principal); R92.8 Other abnormal and inconclusive findings on diagnostic imaging of breast; N64.59 Other signs and symptoms in breast
CPT/HCPCS: 77063; 77067

== ENCOUNTER 2023-04-30 16:28 | Outpatient (REF) | payer MEDICARE, OTHER, SELFPAY ==
[2023-04-30 22:01] LABS: ALT 28 U/L (14-59); AST 16 U/L (15-37); Albumin 3.9 g/dL (3.4-5.0); Alkaline Phosphatase 66 U/L (46-116); Anion Gap 9.5 mmol/L (3-11); BUN 19 mg/dL (7-18); Bilirubin, Total 0.3 mg/dL (0.2-1.0); CO2 28.5 mmol/L (21.0-32.0); CREATININE 0.7 mg/dL (0.55-1.02); Calcium 9.3 mg/dL (8.5-10.1); Calculated LDL 167 mg/dL (<100); Chloride 103 mmol/L (98-107); Cholesterol 275 mg/dL (<200); Estimated GFR 94.15 (mL/min/1.73m2); Glucose 100 mg/dL (74-106); HDL Cholesterol 67 mg/dL (40-60); Potassium 4.4 mmol/L (3.5-5.1); Sodium 141 mmol/L (136-145); TSH (W/Ref FT4) 1.32 uIU/mL (0.36-3.74); Triglyceride 209 mg/dL (<150)
[2023-04-30 22:50] LABS: Vitamin D 25 Total 36.6 ng/mL (30-100)
== END 2023-04-30 16:29 | disposition home or self-care (01) ==
LOC: NCHCN 16:28
PROVIDERS: PCP Family Medicine; Visit Provider Family Medicine
DX: E11.9 Type 2 diabetes mellitus without complications (principal); E03.9 Hypothyroidism, unspecified; E78.5 Hyperlipidemia, unspecified
CPT/HCPCS: 80053; 80061; 82306; 84443

== ENCOUNTER 2024-04-29 15:00 | Outpatient (REF) | payer MEDICARE, OTHER, SELFPAY ==
[2024-04-29 17:24] LABS: ALT 26 U/L (14-59); AST 21 U/L (15-37); Albumin 3.6 g/dL (3.4-5.0); Alkaline Phosphatase 65 U/L (46-116); Anion Gap 8.4 mmol/L (3-11); BUN 17 mg/dL (7-18); Bilirubin, Total 0.46 mg/dL (0.2-1.0); CO2 30.6 mmol/L (21.0-32.0); CREATININE 0.8 mg/dL (0.55-1.02); Calculated LDL 138 mg/dL (<100); Chloride 106 mmol/L (98-107); Cholesterol 231 mg/dL (<200); Estimated GFR 79.71 (mL/min/1.73m2); Glucose 112 mg/dL (74-106); HDL Cholesterol 65 mg/dL (40-60); Sodium 145 mmol/L (136-145); TSH (W/Ref FT4) 1.21 uIU/mL (0.36-3.74); Total Protein 6.7 g/dL (6.4-8.2); Triglyceride 142 mg/dL (<150); Vitamin D 25 Total 39.4 ng/mL (30-100)
== END 2024-04-29 15:01 | disposition home or self-care (01) ==
LOC: NCHCN 15:00
PROVIDERS: PCP Family Medicine; Visit Provider Family Medicine
DX: Z00.00 Encounter for general adult medical examination without abnormal findings (principal)
CPT/HCPCS: 80053; 80061; 82306; 84443

== ENCOUNTER 2024-05-07 17:14 | Outpatient (REF) | payer MEDICARE, OTHER, SELFPAY ==
[2024-05-07 20:58] LABS: ESR 22 mm/hr (0-30)
[2024-05-07 21:07] LABS: Creatine Kinase 66 U/L (26-192)
[2024-05-07 21:08] LABS: C-Reactive Protein < 0.50 mg/dL (<or=0.5)
== END 2024-05-07 17:15 | disposition home or self-care (01) ==
LOC: NCHCN 17:14
PROVIDERS: PCP Family Medicine; Visit Provider Family Medicine
DX: M62.81 Muscle weakness (generalized) (principal)
CPT/HCPCS: 82550; 85652; 86140

== ENCOUNTER 2024-05-29 02:50 | Outpatient (CLI) | payer MEDICARE, OTHER, SELFPAY ==
--- NOTE | 2024-05-29 | DI.MAMMO_ITS ---
Exam(s) MAMMO SCREENING EXAM: MAMMO SCREENING CLINICAL HISTORY: screening, Z12.31 TECHNIQUE: Bilateral full field digital CC and MLO mammographic images were obtained with 3D tomosyn thesis and utilizing computer aided detection (CAD). COMPARISON: Available for comparison. FINDINGS: Masses/Architectural Distortion: None seen. Microcalcifications: No suspicious pleomorphic-type are seen. Skin Thickening/Nipple Retraction: None. IMPRESSION: 1. No significant interval change with no specific features of malignancy noted. 2. Unless there is more urgent need, screening mammography is recommended, as per [employer] [place] [employer] guidelines. BI-RADS Category 1 - Negative Breast Density - Category B - Scattered areas of fibroglandular density Breast density category C or D implies that the patient has dense breast tissue. Dense breast tissue is very common and is not abnormal but dense breast tissue can make it harder to find cancer on a ma mmogram. Also, dense breast tissue may increase their breast cancer risk. This information about the result of the mammogram report was provided to the patient to raise their awareness. Use this report when you speak with the patient about their risks for breast cancer, which includes their family hist ory. At that time, you may recommend for more screening tests (Ultrasound or MRI) as they might be us eful based on their risk. A negative radiographic report should not delay biopsy if a dominant or clinically suspicious mass is present. Up to ten percent of cancers are not identified on mammography. A negative report may reinforce clinical impression. Adenosis and dense breasts may obscure an underlying neoplasm. False positive reports average 6 to 10%. Patient will receive a letter notifying them of these results.
--- NOTE | 2024-05-29 | DI.DEXA_ITS ---
Exam(s) XR DEXA BONE DENSITY W/WO ALYSSA EXAM: XR DEXA BONE DENSITY W/WO ALYSSA CLINICAL HISTORY: Z78.0 Asymptomatic menopausal state TECHNIQUE: COMPARISON: No exams were available for comparison FINDINGS: Lateral Spine Image: Unremarkable. No compression deformities identified. Left hip: Total T-Score: 1.1 Total Z-Score: 2.6 T- and Z-scores: Within normal limits. Lumbar Spine: Total T-Score: 1.0 Total Z-Score: 3.0 T- and Z-scores: Within normal limits. IMPRESSION: No evidence of osteoporosis.
== END 2024-05-29 03:10 ==
PROVIDERS: PCP Family Medicine; Visit Provider Family Medicine
DX: Z78.0 Asymptomatic menopausal state (principal); Z13.820 Encounter for screening for osteoporosis; Z12.31 Encounter for screening mammogram for malignant neoplasm of breast
CPT/HCPCS: 77063; 77067; 77080

== ENCOUNTER 2024-11-05 13:46 | Outpatient (REF) | payer MEDICARE, OTHER, SELFPAY ==
[2024-11-05 16:28] LABS: Calculated LDL 108 mg/dL (<100); Cholesterol 208 mg/dL (<200); HDL Cholesterol 64 mg/dL (40-60); Triglyceride 184 mg/dL (<150)
== END 2024-11-05 13:47 | disposition home or self-care (01) ==
LOC: NCHCN 13:46
PROVIDERS: PCP Family Medicine; Visit Provider Family Medicine
DX: E78.5 Hyperlipidemia, unspecified (principal)
CPT/HCPCS: 80061

== ENCOUNTER 2025-05-12 12:40 | Outpatient (REF) | payer MEDICARE, OTHER, SELFPAY ==
[2025-05-12 16:48] LABS: Hemoglobin A1C 6.1 % (<5.7)
== END 2025-05-12 12:41 | disposition home or self-care (01) ==
LOC: NCHCN 12:40
PROVIDERS: PCP Family Medicine; Visit Provider Family Medicine
DX: E11.9 Type 2 diabetes mellitus without complications (principal)
CPT/HCPCS: 83036

== ENCOUNTER 2025-06-01 10:12 | Outpatient (CLI) | payer MEDICARE, OTHER, SELFPAY ==
--- NOTE | 2025-06-01 | DI.MAMMO_ITS ---
Exam(s) MAMMO SCREENING EXAM: MAMMO SCREENING CLINICAL HISTORY: Screening, Adult health examination, Z00.00. TECHNIQUE: Bilateral full field digital CC and MLO mammographic images were obtained with 3D tomosynthesis and utilizing computer aided detection (CAD). COMPARISON: Prior mammograms were reviewed. FINDINGS: There has been no significant change in the appearance and distribution of the fibroglandular tissue. There are no CAD designations There are no new spiculated masses nor malignant appearing microcalcification groups. There is no significant architectural distortion nor skin thickening-retraction. IMPRESSION: No radiographic evidence of malignancy. BI-RADS Category 1 - Negative Breast Density - Category B - There are scattered areas of fibroglandular density. Breast density Category C or D implies that the patient has dense breast tissue. Dense breast tissue can make it harder to find cancer on a mammogram. Dense breast tissue is also associated with an increased risk of breast cancer. This information about the result of the mammogram report was provided to the patient to raise their awareness. Use this report when you speak with the patient about their risks for breast cancer, which includes their family history. At that time, you may recommend additional screening tests (Ultrasound or MRI) as these tests may add significant information. A negative radiographic report should not delay biopsy if a dominant or clinically suspicious mass is present. Up to ten percent of cancers are not identified on mammography. A negative report may reinforce clinical impression. Adenosis and dense breasts may obscure an underlying neoplasm. False positive reports average 6 to 10%. Patient will receive a letter notifying them of these results.
== END 2025-06-01 10:32 ==
PROVIDERS: PCP Family Medicine; Visit Provider Family Medicine
DX: Z12.31 Encounter for screening mammogram for malignant neoplasm of breast (principal); Z00.00 Encounter for general adult medical examination without abnormal findings; R92.323 Mammographic fibroglandular density, bilateral breasts
CPT/HCPCS: 77063; 77067